=== PATIENT | female | born 1990 ===

== ENCOUNTER 2020-10-10 15:29 | Emergency (ER) | payer SELFPAY ==
--- NOTE | 2020-10-10 16:17 | CR ---
PROCEDURE INFORMATION: Exam: XR Right Elbow Exam date and time: 10/10/2020 3:58 PM Age: 30 years old Clinical indication: Pain; Elbow; Right; Additional info: Fall, swelling TECHNIQUE: Imaging protocol: XR Right elbow. Views: 1 or 2 views. COMPARISON: No relevant prior studies available. FINDINGS: Bones/joints: The alignment of the joints is anatomic and the joint spaces are maintained. There is no evidence of a joint effusion. There appears to be a crack through the lateral epicondyle but this is of indeterminate age. Correlation with point tenderness is suggested. Soft tissues: There is mild soft tissue swelling. IMPRESSION: Fracture of the lateral epicondyle of indeterminate age.
--- NOTE | 2020-10-10 16:21 | EDM.PDOC ---
ED HPI GENERAL MEDICAL PROBLEM - General Chief Complaint: Upper Extremity Injury/Pain Stated Complaint: FELL DOWN ON RIGHT ELBOW Time Seen by Provider: 10/10/20 16:30 Source of Information: Reports: Patient, RN, RN Notes Reviewed History Limitations: Reports: No Limitations - History of Present Illness INITIAL COMMENTS - FREE TEXT/NARRATIVE: Patient is a 30 year old female who presents to the ER with c/o right elbow pain. Patient states just prior to arrival she slipped and hit her elbow. Patient denies hitting her head or getting knocked out. Rates right elbow pain 05/28. Patient denies previous injury to the right elbow. Patient states she has taken Tylenol. Onset: Today, Sudden - Related Data Allergies Allergy/AdvReac Type Severity Reaction Status Date / Time No Known Allergies Allergy Verified 10/10/20 16:20 Home Meds: Home Meds Acetaminophen [Tylenol Extra Strength] 1,000 mg PO Q6H PRN 10/10/20 [History] Review of Systems - Review of Systems Review Of Systems: Comprehensive ROS is negative, except as noted in HPI. ED EXAM, GENERAL - Physical Exam Exam: See Below Exam Limited By: No Limitations General Appearance: Alert, WD/WN, No Apparent Distress Eye Exam: Bilateral Eye: EOMI, Normal Inspection Ears: Normal External Exam, Hearing Grossly Normal Nose: Normal Inspection Throat/Mouth: Normal Inspection, Normal Voice, No Airway Compromise Head: Atraumatic, Normocephalic Neck: Normal Inspection, Supple, Non-Tender, Full Range of Motion Respiratory/Chest: No Respiratory Distress, Lungs Clear, Normal Breath Sounds, No Accessory Muscle Use, Chest Non-Tender Cardiovascular: Normal Peripheral Pulses, Regular Rate, Rhythm, No Edema, No Gallop, No JVD, No Murmur, No Rub Peripheral Pulses: 2+: Radial (L), Radial (R) GI/Abdominal: Normal Bowel Sounds, Soft, Non-Tender (Female) Exam: Deferred Rectal (Female) Exam: Deferred Back Exam: Normal Inspection, Full Range of Motion, NT Extremities: Joint Swelling (right elbow, contusion, bruising), Arm Pain (right elbow), Limited Range of Motion (right elbow) Neurological: Alert, Oriented, CN II-XII Intact, Normal Cognition, Normal Gait, Normal Reflexes, No Motor/Sensory Deficits Psychiatric: Normal Affect, Normal Mood Skin Exam: Warm, Dry, Intact, No Rash, Ecchymosis (right elbow) Lymphatic: No Adenopathy ED TRAUMA EXTREMITY PROCEDURES - Splinting Right Upper Extremity Pre-Procedure NV Status: Normal Post-Procedure NV Status: Normal Splint Material: Sling Applied & Form Fitted By: Provider Provider Post-Splint Application NV Check: NV Status Normal, Good Position Complications: No Course - Vital Signs Last Recorded V/S: Last Vital Signs Temp 97.9 F 10/10/20 15:59 Pulse 85 10/10/20 15:59 Resp 20 10/10/20 15:59 BP 116/78 10/10/20 15:59 Pulse Ox 100 10/10/20 15:59 - Orders/Labs/Meds Meds: Medications Discontinued Medications Generic Name Dose Route Start Last Admin Trade Name Oneil PRN Reason Stop Dose Admin Ibuprofen 600 mg 10/10/20 16:29 10/10/20 16:35 Motrin PO 10/10/20 16:30 600 mg ONETIME ONE Administration - Radiology Interpretation Free Text/Narrative:: Right elbow xray: Fracture lateral epicondyle of indeterminate age. See rad report - Re-Assessments/Exams Free Text/Narrative Re-Assessment/Exam: 10/10/20 18:56 Discussed patient case with Dr. Kimble who states he feels this is an old fracture and that splinting is not necessary. He states she may use a sling and either follow up with her primary care facility or with ortho next week. Departure - Departure Time of Disposition: 16:57 Disposition: Home, Self-Care 01 Condition: Good Clinical Impression: Elbow contusion Qualifiers: Encounter type: initial encounter Laterality: right Qualified Code(s): S50.01XA - Contusion of right elbow, initial encounter - Discharge Information *PRESCRIPTION DRUG MONITORING PROGRAM REVIEWED*: No *COPY OF PRESCRIPTION DRUG MONITORING REPORT IN PATIENT ARTI: No Instructions: How to Use Cold Therapy, [id number], How To Use a Sling, [id number] Referrals: PCP,None [Primary Care Provider] - Forms: ED Department Discharge Additional Instructions: May use Tylenol and/or Ibuprofen as directed for pain Call [phone] for [facility] if you would like to follow up with them Otherwise use sling, begin using gentle range of motion exercises. May follow up with your primary care facility if no improvement. Sepsis Event Note (ED) - Focused Exam Vital Signs: Vital Signs Temp Pulse Resp BP Pulse Ox 10/10/20 15:59 97.9 F 85 20 116/78 100
[2020-10-10] MEDS ORDERED: Ibuprofen 600 MG Tab PO ONE (16:29)
== END 2020-10-10 17:26 | disposition home or self-care (01) ==
LOC: DL.ED 15:29
DX: S50.01XA Contusion of right elbow, initial encounter (principal); W01.198A Fall on same level from slipping, tripping and stumbling with subsequent striking against other object, initial encounter
CPT/HCPCS: 73070; 99283; A9270